=== PATIENT | female | born 1970 | race Caucasian/White ===

== ENCOUNTER 2023-02-20 05:25 | Day surgery (SDC) | payer OTHER ==
[~2023-02-20] VITALS: Ht 172.7 cm; Wt 66.7 kg
[~2023-02-20 05:25] MED LIST: ALDACTONE 100M100 MG PO; ALDACTONE 25MG25 M1 PO; ALDACTONE50 MG PO; ALLEGRA 180MG180 MG PO; ALLEGRA-D 24HOU1 T24 PO; ALLEGRA-D 24HR1 T24 PO; CEPHALEXIN500 M1 PO; COD LIVER OIL1 CAP PO; MINOCYCLIN100 MG/CAP PO; NORCO 325 MG-7.1 TAB PO; ONE DAILY1 TA2 PO; PHENERGAN 25 TA25 MG PO; SUDAFED60 MG PO; SUPHEDRINE30 MG PO; TYLENOL W/COD1 UDTAB PO; VITAMIN C BUFF500 MG PO; WOMEN'S DAILY1 TAB PO; [UNRECOGNIZED DRUG - OTHER] PO
[2023-02-20 06:12] VITALS: BP 127/77; PULSE 71; TEMP 97.5
[2023-02-20] MEDS ORDERED: Ondansetron 4 MG/2 ML VIAL IV PRN (06:15)
[2023-02-20] MEDS ORDERED: HYDROcodone/Acetaminophen 7.5-325 MG TAB PO PRN (06:15)
[2023-02-20] MEDS ORDERED: traMADol 50 MG TAB PO PRN (06:15)
--- NOTE | 2023-02-20 06:15 | NUR ---
0530 Pt ambulatory to bay 8 with steady gait, breathing even and unlabored. Pt is alert and oriented. Consent reviewed with and signed by pt. IV established. Call light in reach. Warm blanket provided.
[2023-02-20] MEDS ORDERED: ULTRAM 50MG TAB50 MG PO (06:17)
[2023-02-20] MEDS ORDERED: NORCO 325 MG-7.1 TAB PO (06:17)
[2023-02-20] MEDS ORDERED: fentaNYL 50 MCG/ML 2 ML VIAL ONE (06:31)
[2023-02-20] MEDS ORDERED: Midazolam 2 MG/2 ML VIAL ONE (06:31)
[2023-02-20] MEDS ORDERED: dexAMETHasone 10 MG/ML VIAL ONE (06:32)
[2023-02-20] MEDS ORDERED: Famotidine 20 MG TAB PO SCH (06:45)
[2023-02-20] MEDS ORDERED: LR 1,000 ML IV SCH (06:45)
[2023-02-20 07:33] VITALS: BP 108/64; PULSE 76; TEMP 97
[2023-02-20 07:45] VITALS: BP 121/58; PULSE 77
[2023-02-20 08:00] VITALS: BP 106/65; PULSE 60
[2023-02-20 08:15] VITALS: BP 97/75; PULSE 64
--- NOTE | 2023-02-20 09:12 | NUR ---
[id number]: ASSUMED CARE OF PT AT 0800 FROM [facility] [place] NAMED ACCOUNT EXECUTIVE, BELOW NOTE PER REPORT PRIOR TO 0800, AND PER OBSERVATION THEREAFTER. 0733 PT TO [facility]OVERY BAY 8 FROM OR S/P RIGHT LATERAL EPICONDYL DEBRIDEMENT AND REPAIR L&O, PLACED ON MONITOR, VSS ON RA RECEIVED REPORT AND ASSUMED CARE OF PT FROM AMADOR AND LEANDRA MARTINEZ IN REX WRAPPED SPLINT, AND SLING. NVI DISTALLY (+SENSATION AND MOVEMENT TO FINGERS, CAP REFILL < 2SEC). SPLINT STILL WARM, CDI. DENIES PAIN/COMPLAINT. FAMILY BROUGHT TO BEDSIDE PROVIDED FOOD/FLUIDS, TOLERATING WELL PT HAS REMAINED A&O, NAD, VSS ON RA, TOLERATING PO, IS WITHOUT SIGNIFICANT COMPLAINT, WITH STEADY GAIT, NVI DISTALLY, DRSG CDI THRU OUT STAY IV D/C'D. D/C INSTRUCTIONS, FOLLOW UP REVIEWED AND HANDED TO PT. ALL QUESTIONS AND CONCERNS ADDRESSED TO PT SATISFACTION. TAKEN TO EXIT VIA W/C WITH ALL BELONGINGS AND PAPERWORK IN HAND, ASSISTED INTO PASSENGER SEAT OF POV. SPOUSE TO DRIVE HOME.
== END 2023-02-20 08:45 | disposition home or self-care (01) ==
LOC: SDCO 05:25
DX: M77.11 Lateral epicondylitis, right elbow (principal)
CPT/HCPCS: J1100; J2250; J2704; J2795; J3010; J7120

== ENCOUNTER → 2023-04-06 | Outpatient (CLI) | payer OTHER ==
[~2023-04-06] MED LIST changes: +ULTRAM 50MG TAB50 MG PO
== END ==
LOC: MC.RAD 07:35
DX: Z12.31 Encounter for screening mammogram for malignant neoplasm of breast (principal)